=== PATIENT | male | born 1980 | race Caucasian/White ===

== ENCOUNTER → 2016-09-01 | Outpatient (CLI) | payer SELFPAY ==
--- NOTE | 2016-09-03 16:54 | US ---
EXAM DATE: 09/01/16 PATIENT'S AGE: 36 Patient: ANCA SORTO Facility: [place], [place] Site . Site : 1980 Study: US Extremity Left [id number] 1:20:38 PM Ordering Physician: Lien Russo Final Report: INDICATION: REDNESS SWELLING AND PAIN LEFT CALF LEFT LOWER EXTREMITY VENOUS DUPLEX ULTRASOUND TECHNIQUE: Duplex sonography using grayscale imaging as well as color and spectral Doppler interrogation was performed over the left lower extremity with attention to the deep venous system. FINDINGS: The left common femoral, femoral, deep femoral, popliteal, and posterior tibial veins show normal compressibility, color Doppler flow, and augmentation response. IMPRESSION: No evidence of deep venous thrombosis in the left lower extremity. ANCA VYAS MD [employer] Dictated by: Wilfrido Vyas MD @ 09/01/2016 13:50:51 (Electronic Signature) Report Signed by Proxy. [facility]
== END ==
LOC: MW.US 12:51
PROVIDERS: ATTEND Radiology Diagnostic Radiology
DX: L53.9 Erythematous condition, unspecified (principal); R22.42 Localized swelling, mass and lump, left lower limb; M79.605 Pain in left leg
CPT/HCPCS: 93971-26-LT; 93971-LT

== ENCOUNTER 2017-02-03 20:19 | Emergency (ER) | payer BC ==
[2017-02-03] MEDS ORDERED: Benzonatate 100 MG Cap PO ONE (21:10)
--- NOTE | 2017-02-03 21:30 | EDM.PDOC ---
ED HPI GENERAL MEDICAL PROBLEM - General Chief Complaint: Respiratory Problem Stated Complaint: TROUBLE BREATHING/CONGESTION/COLD Time Seen by Provider: 02/03/17 20:43 Source of Information: Reports: Patient History Limitations: Reports: No Limitations - History of Present Illness INITIAL COMMENTS - FREE TEXT/NARRATIVE: HISTORY AND PHYSICAL: History of present illness: [36-year-old male nonsmoker with no significant past history except morbid obesity now presents to the emergency department because he has a cold. Patient states she's been evolving cold symptoms today. He has sinus congestion with a runny nose as well as the persistent dry cough. His no chest pain or pleuritic pain. No productive cough. He does report some fevers chills and sweats. Denies abdominal pain no vomiting or diarrhea. He has been taking vitamin C.] Review of systems: As per history of present illness and below otherwise all systems reviewed and negative. Past medical history: As per history of present illness and as reviewed below otherwise noncontributory. Surgical history: As per history of present illness and as reviewed below otherwise noncontributory. Social history: No reported history of drug or alcohol abuse. Family history: As per history of present illness and as reviewed below otherwise noncontributory. Physical exam: Morbidly obese male alert vigorous cooperative and appropriate distress clear rhinorrhea supple neck clear lungs regular rhythm no tachycardia Abdomen normal extremities nonfocal neuro HEENT: Atraumatic, normocephalic, pupils reactive, negative for conjunctival pallor or scleral icterus, mucous membranes moist, throat clear, neck supple, nontender, trachea midline. Lungs: Clear to auscultation, breath sounds equal bilaterally, chest nontender. Heart: S1S2, regular, negative for clicks, rubs, or JVD. Abdomen: Soft, nondistended, nontender. Negative for masses or hepatosplenomegaly. Negative for costovertebral tenderness. Pelvis: Stable nontender. Genitourinary: Deferred. Rectal: Deferred. Extremities: Atraumatic, negative for cords or calf pain. Neurovascular unremarkable. Neuro: Awake, alert, oriented. Cranial nerves II through XII unremarkable. Cerebellum unremarkable. Motor and sensory unremarkable throughout. Exam nonfocal. Diagnostics: [] Therapeutics: Tessalon given by mouth] Impression: [] Plan: [Signs and symptoms consistent with viral syndrome/common cold in a well- appearing patient with unremarkable vital signs. Discussed with patient use Mucinex DM [id number] as well as decongestants if he so chooses. We'll prescribe Tessalon for use as needed for breakthrough cough. Patient aware to rest and drink plenty of fluids. He will take Motrin Tylenol as needed for pain and fever. Patient will follow-up with his primary care doctor. No further workup or treatment indicated at this time. Patient agrees with outpatient follow-up and strict return precautions given Definitive disposition and diagnosis as appropriate pending reevaluation and review of above. sinus pressure Pain Score (Numeric/FACES): 3 - Related Data Allergies Allergy/AdvReac Type Severity Reaction Status Date / Time No Known Allergies Allergy Verified 02/03/17 20:31 Home Meds: Home Meds Benzonatate [Tessalon Perles] 200 mg PO TID PRN #21 cap 02/03/17 [Rx] Past Medical History HEENT History: Reports: None Cardiovascular History: Reports: None Respiratory History: Reports: Bronchitis, Recurrent, Pneumonia, Recurrent Gastrointestinal History: Reports: None Genitourinary History: Reports: None Musculoskeletal History: Reports: None Neurological History: Reports: None Psychiatric History: Reports: None Endocrine/Metabolic History: Reports: None Hematologic History: Reports: None Immunologic History: Reports: None Oncologic (Cancer) History: Reports: None Dermatologic History: Reports: None - Infectious Disease History Infectious Disease History: Reports: None Social & Family History - Family History Family Medical History: Noncontributory - Tobacco Use Smoking Status *Q: Never Smoker - Caffeine Use Caffeine Use: Reports: Energy Drinks - Recreational Drug Use Recreational Drug Use: No ED ROS GENERAL - Review of Systems Review Of Systems: See Below (History of present illness) ED EXAM, GENERAL - Physical Exam Exam: See Below (History of present illness) Course - Vital Signs Last Recorded V/S: Last Vital Signs Temp 36.4 C 02/03/17 20:41 Pulse 87 02/03/17 20:41 Resp 16 02/03/17 20:41 BP 137/91 H 02/03/17 20:41 Pulse Ox 98 02/03/17 20:41 - Orders/Labs/Meds Orders: Active Orders 24 hr Category Date Time Status Benzonatate [Tessalon Perles] Med 02/03/17 21:10 Once 200 mg PO ONETIME ONE Departure - Departure Time of Disposition: 21:10 Disposition: Home, Self-Care 01 Condition: Good Clinical Impression: Viral syndrome, Common cold - Discharge Information Referrals: PCP,None [Primary Care Provider] - Additional Instructions: You're suffering from a viral syndrome also known as "the common cold. "Rest and plenty of fluids. Take 800 mg of ibuprofen every 6 hours as well as Tylenol every 4 hours as needed for aches and fevers. Use Mucinex DM [id number] to break up mucus and for cough control. Take Tessalon pearls as prescribed as needed for cough that is not relieved from the Mucinex DM. Consider over-the- counter decongestants for use as needed for your nasal congestion. Follow-up with your doctor in 2-3 days and return immediately for new severe or worsening symptoms - My Orders Last 24 Hours: My Active Orders 02/03/17 21:10 Benzonatate [Tessalon Perles] 200 mg PO ONETIME ONE - Assessment/Plan Last 24 Hours: My Active Orders 02/03/17 21:10 Benzonatate [Tessalon Perles] 200 mg PO ONETIME ONE
[2017-02-03 22:09] VITALS: BP 124/74
== END 2017-02-03 22:03 | disposition home or self-care (01) ==
LOC: MW.ED 20:19
DX: B34.9 Viral infection, unspecified (principal)
CPT/HCPCS: 99283; A9270; 99282